=== PATIENT | female | born 1995 | race Caucasian/White ===

== ENCOUNTER 2017-03-26 23:50 | Inpatient (IN) | payer BC, MEDICAID ==
[2017-03-27] MEDS ORDERED: Misoprostol 400 MCG (4 X 100 MCG TAB) RECTAL PRN
[2017-03-27] MEDS ORDERED: Carboprost Tromethamine 250 MCG/1 ML Amp IM PRN
[2017-03-27] MEDS ORDERED: Nalbuphine 10 MG/1 ML Vial IVPUSH PRN
[2017-03-27] MEDS ORDERED: Methylergonovine 0.2 MG/1 ML Amp IM PRN
[2017-03-27] MEDS ORDERED: Acetaminophen 325 MG Tab PO PRN
[2017-03-27] MEDS ORDERED: Lactated Ringers 500 ML IV ONE
[2017-03-27] MEDS ORDERED: Lidocaine 1% 30 ML SDV INJECT PRN
[2017-03-27] MEDS ORDERED: Ondansetron 4 MG/2 ML SDV IV PRN
--- NOTE | 2017-03-27 | PCM.LDHP ---
L&D History of Present Illness - General Date of Service: 03/27/17 Admit Problem/Dx: Admission Diagnosis/Problem Admission Diagnosis/Problem Source of Information: Patient History Limitations: Reports: No Limitations - History of Present Illness Introduction:: 21-year-old presents to labor and delivery at 38 weeks gestation for induction of labor for IUGR. On her ultrasound yesterday, EFW was 2548 grams and EDC% was 5.3. The decision was made to proceed with induction of labor. Patient has been feeling well. Baby has been active. She does have random contractions but nothing regular. No vaginal bleeding or leaking of fluid. No new headache or vision changes. - Related Data Allergies/Adverse Reactions: Allergies Allergy/AdvReac Type Severity Reaction Status Date / Time Penicillins Allergy Hives Verified 03/27/17 01:19 Sulfa (Sulfonamide Allergy Hives Verified 03/27/17 01:19 Antibiotics) Home Medications: Home Meds PNV95/Ferrous Fumarate/FA [ Tablet] 1 each PO DAILY 03/24/14 [History] Ferrous Sulfate [Iron] 1 tab PO DAILY 03/19/17 [History] Past Medical History Psychiatric History: Reports: Anxiety - Infectious Disease History Infectious Disease History: Reports: MRSA - Past Surgical History HEENT Surgical History: Reports: Tonsillectomy Social & Family History - Family History GI: Reports: Other (See Below) (Esophageal cancer--Maternal grandfather) : Reports: Renal Calculus (Mother) - Tobacco Use Smoking Status *Q: Former Smoker Second Hand Smoke Exposure: Yes - Recreational Drug Use Recreational Drug Use: No H&P Review of Systems - Review of Systems: Review Of Systems: See Below General: Reports: No Symptoms HEENT: Reports: No Symptoms Pulmonary: Reports: No Symptoms Cardiovascular: Reports: No Symptoms Gastrointestinal: Reports: No Symptoms Genitourinary: Reports: No Symptoms Musculoskeletal: Reports: No Symptoms Skin: Reports: No Symptoms Psychiatric: Reports: No Symptoms Neurological: Reports: No Symptoms L&D Exam - Exam Exam: See Below - Vital Signs Weight: 66.678 kg - OB Specific Fundal Height In cm: 33 Heart Tones: Present Heart Tones per Min: 135 Heart Rate (FHR) Variability: Moderate (6-25 bmp) Presentation: Vertex - Zuluaga Score Zuluaga Score Cervix Position: Midposition Zuluaga Score Consistency: Medium Zuluaga Score Effacement: 51-70% Zuluaga Score Dilation: 1-2 cm Zuluaga Score Infant's Station: -1 ,0 Zuluaga Score Total: 7 - Exam General: Alert, Oriented HEENT: Conjunctiva Clear, Posterior Pharynx Clear Lungs: Clear to Auscultation, Normal Respiratory Effort Cardiovascular: Regular Rate, Regular Rhythm. No: Systolic Murmur, Diastolic Murmur GI/Abdominal Exam: Normal Bowel Sounds, Soft Extremities: Normal Inspection, No Pedal Edema Skin: Warm, Dry, Intact - Patient Data Result Diagrams: 03/27/17 00:12 - Problem List (1) care in third trimester SNOMED Code(s): 778370868, 68431062, 95178073, 933968420, 274570220 ICD Code: Z34.93 - ENCNTR FOR SUPRVSN OF NORMAL PREG, UNSP, THIRD TRIMESTER Status: Acute Current Visit: Yes (2) IUGR (intrauterine growth restriction) SNOMED Code(s): 73736975 ICD Code: PFV0429 - Status: Acute Current Visit: Yes (3) Anemia affecting in third trimester SNOMED Code(s): 76208254, 13979742 ICD Code: O99.013 - ANEMIA COMPLICATING , THIRD TRIMESTER Status: Acute Current Visit: Yes (4) complicated by maternal drug use, antepartum SNOMED Code(s): 857909191 ICD Code: O99.320 - DRUG USE COMPLICATING , UNSPECIFIED TRIMESTER Status: Acute Current Visit: Yes Problem List Initiated/Reviewed/Updated: Yes Assessment/Plan Comment:: 21-year-old at 38 weeks gestation was admitted for induction of labor for IUGR 1. Admit to labor and delivery 2. Initiate routine intrapartum cares 3. Place Cytotec. Plan for Pitocin and/or AROM for augmentation of labor. 4. Anticipate vaginal delivery. Linsey Adrian MD ADDENDUM: Patient received her first dose of Cytotec around 1 AM. She was mariam around the time when her second dose was due. She decided to sit in the tub. Patient was evaluated by me around 0800. At that time her cervix was 3/80/-1. The head was well applied so AROM was performed for moderate clear fluid. We'll monitor the patient for 1-2 hours. If contractions do not increased, we will proceed with Pitocin augmentation of labor. Linsey Adrian MD
[2017-03-27] MEDS ORDERED: Sodium Chloride 0.9% 10 ML Syringe FLUSH PRN ×3 (00:06→18:18)
[2017-03-27] MEDS ORDERED: Misoprostol 25 MCG (1/4 of 100 MCG) Tab VAG PRN (00:06)
[2017-03-27] MEDS ORDERED: Oxytocin/Normal Saline 30 UNIT/500 ML BAG IV SCH (00:15)
[2017-03-27] MEDS: fentaNYL 100 MCG/2 ML SDV IVPUSH PRN ×2 (11:20→13:12)
[2017-03-27] MEDS ORDERED: fentaNYL 100 MCG/2 ML SDV ITHECAL ONE (12:44)
[2017-03-27] MEDS: Lactated Ringers 1,000 ML IV SCH ×3 (14:19→16:13)
[2017-03-27] MEDS ORDERED: fentaNYL 100 MCG/2 ML SDV ONE (14:24)
--- NOTE | 2017-03-27 14:58 | PCM.SN ---
- Free Text/Narrative Note: Called to provide labor pain relief via intrathecal for this patient. After VS , labs, hx reviewed, consent obtained and monitors on, proceeded. With patient in sitting position, sterile prep/drape. Skin wheal at L3-4 with 1% Lidocaine. LP X 1 at L3-4 with 24gauge pencan spinal needle. Positive, free flowing clear CSF, no heme, no paresthesia. Then 6mg mpf hyperbaric spinal 0.75% marcaine, 20mcg sufenta, 30mcg fentanyl, 0.4ml preservative free saline plus epi wash intrathecal. Patient to supine for 10minutes afterwards. Maternal B/P and FHT stable after this. Pt reported pain relief with subsequent contractions.
[2017-03-27] MEDS ORDERED: Simethicone 80 MG Tab.Chew PO PRN (18:18)
[2017-03-27] MEDS ORDERED: Oxytocin 10 Units/1 ML SDV IM PRN (18:18)
[2017-03-27] MEDS ORDERED: Benzocaine/Menthol 20%-0.5% Spray 56 GM Canister TOP PRN (18:18)
--- NOTE | 2017-03-27 18:25 | PCM.DEL ---
L & D Note - General Info Date of Service: 03/27/17 Mother's Due Date: 04/10/17 - Delivery Note Labor: Augmented by Oxytocin, Induced by ARM Cervical Ripening Method: Misoprostil Delivery Outcome: Livebirth Infant Delivery Method: Spontaneous Vaginal Delivery Presentation: Right Occiput Anterior (NANI) Nuchal Cord: None Anesthesia Type: Intrathecal Amniotic Fluid Description: Clear Episiotomy Type: None Laceration: None Placenta: Intact, Spontaneous Cord: 3 Vessels (Cord noted to be about 8 in long) Estimated Blood Loss: 175 Resuscitation Needed: Yes : Bulb Syringe, Stimulated, Warmed Provider: Linsey Adrian Delivery Comments (Free Text/Narrative):: 21-year-old now status post normal spontaneous vaginal delivery. Patient presented for induction of labor at 38w0d due to IUGR. She received 1 dose of Cytotec. Around 8 AM, AROM was performed for moderate clear fluid. Pitocin was started around 12:30. Patient received an intrathecal for pain relief. She progressed to complete dilation around 1700. Patient labored down for approximately 30 minutes then started pushing. After about 20 minutes of pushing , she delivered a viable female . Cord was cut and clamped 2. Umbilical cord was noted to be quite short. Cord blood was collected. Baby was taken to the warmer for a couple of minutes and then was returned to mother's chest. About 2 minutes later, the placenta delivered spontaneously and appeared to be intact. Again, the umbilical cord was noted to be short at about 8 inches in length. Uterus is noted to be firm and bleeding was appropriate. Perineum was noted to be intact. There were no immediate complications, and patient tolerated procedure well. Linsey Adrian MD Induction Criteria - Zuluaga Score Zuluaga Score Dilation: 1-2 cm Zuluaga Score Effacement: 60-70% Zuluaga Score Infant's Station: -1 ,0 Zuluaga Score Consistency: Soft Zuluaga Score Cervix Position: Midposition Zuluaga Score Total: 8 Zuluaga Score Presenting Part: Reports: Cephalic - Induction Gestational Age >/= 39 wks: No Medical Indication: IUGR, EDC% 5.3 Estimated Pelvis: Reports: Adequate Reassuring Monitoring Strip: Yes Absence of Tachy Systole: Yes - Augmentation Estimated Pelvis: Reports: Adequate Weight Estimated:: Reports: SGA Estimated Weight if LGA: 2.548 kg Reassuring Monitoring Strip: Yes Absence of Tachy Systole: Yes - Patient Data Vitals - Most Recent: Last Vital Signs Temp 36.8 C 03/27/17 10:53 Pulse 86 03/27/17 15:45 Resp 16 03/27/17 07:42 BP 107/51 L 03/27/17 15:45 Pulse Ox 100 03/27/17 15:35 Weight - Most Recent: 66.678 kg I&O - Last 24 Hours: Intake & Output 03/27/17 03/27/17 03/27/17 06:59 14:59 22:59 Output Total 200 Balance -200 Lab Results Last 24 Hours: Laboratory Results - last 24 hr 03/27/17 03/27/17 Range/Units 00:12 01:30 WBC 11.6 H (5.0-10.0) 10^3/uL RBC 3.68 L (4.2-5.4) 10^6/uL Hgb 10.9 L (12.0-16.0) g/dL Hct 32.9 L (37.0-47.0) % MCV 89.4 (80-100) fL MCH 29.6 (27.0-34.0) pg MCHC 33.1 (33.0-35.0) g/dL Plt Count 186 (150-450) 10^3/uL Urine Opiates Screen Negative (NEGATIVE) Ur Oxycodone Screen Negative (NEGATIVE) Urine Methadone Screen Negative (NEGATIVE) Ur Barbiturates Screen Negative (NEGATIVE) U Tricyclic Antidepress Negative (NEGATIVE) Ur Phencyclidine Scrn Negative (NEGATIVE) Ur Amphetamine Screen Negative (NEGATIVE) U Methamphetamines Scrn Negative (NEGATIVE) Urine MDMA Screen Negative (NEGATIVE) U Benzodiazepines Scrn Negative (NEGATIVE) Urine Cocaine Screen Negative (NEGATIVE) U Marijuana (THC) Screen Positive H (NEGATIVE) Med Orders - Current: Current Medications Acetaminophen (Tylenol) 650 mg PO Q4H PRN PRN Reason: Pain (Mild 1-3) and fever Carboprost Tromethamine (Hemabate Ds) 250 mcg IM ASDIRECTED PRN PRN Reason: HEMORRHAGE Oxytocin/Sodium Chloride (Pitocin In Ns 30 Unit/500 Ml) 30 unit in 500 mls @ 2 mls/hr IV TITRATE ANICETO; 2 MUNITS/MIN PRN Reason: Protocol Last Titration: 03/27/17 15:18 Dose: 6 munits/min, 6 mls/hr Methylergonovine Maleate (Methergine) 0.2 mg IM ASDIRECTED PRN PRN Reason: Hemorrhage Misoprostol (Cytotec) 25 mcg VAG Q4H PRN PRN Reason: cervical ripening Stop: 03/28/17 04:07 Last Admin: 03/27/17 00:34 Dose: 25 mcg Sodium Chloride (Saline Flush) 10 ml FLUSH ASDIRECTED PRN PRN Reason: Keep Vein Open Sodium Chloride (Saline Flush) 10 ml FLUSH ASDIRECTED PRN PRN Reason: Keep Vein Open Discontinued Medications Fentanyl (Sublimaze) 50 mcg IVPUSH Q1H PRN PRN Reason: Pain (moderate 4-6) Last Admin: 03/27/17 13:12 Dose: 50 mcg Fentanyl (Sublimaze) Confirm Administered Dose 100 mcg .ROUTE .STK-MED ONE Stop: 03/27/17 14:25 Last Admin: 03/27/17 15:21 Dose: Not Given Lactated Ringer's (Ringers, Lactated) 500 mls @ 999 mls/hr IV .BOLUS ONE Stop: 03/27/17 00:30 Last Admin: 03/27/17 11:22 Dose: 999 mls/hr Lactated Ringer's (Ringers, Lactated) 1,000 mls @ 125 mls/hr IV ASDIRECTED ANICETO Last Admin: 03/27/17 16:13 Dose: 125 mls/hr Lidocaine HCl (Xylocaine-Mpf 1%) 10 ml INJECT ASDIRECTED PRN PRN Reason: Perineal Repair Misoprostol (Cytotec) 800 mcg RECTAL ASDIRECTED PRN PRN Reason: Hemorrhage Nalbuphine HCl (Nubain) 10 mg IVPUSH Q3H PRN PRN Reason: Pain (moderate 4-6) Ondansetron HCl (Zofran) 4 mg IV Q4H PRN PRN Reason: Nausea/Vomiting Last Admin: 03/27/17 14:12 Dose: 4 mg Sufentanil Citrate (Sufenta) Confirm Administered Dose 50 mcg .ROUTE .STK-MED ONE Stop: 03/27/17 14:26 Last Admin: 03/27/17 15:22 Dose: Not Given - Problem List & Annotations (1) care in third trimester SNOMED Code(s): 046855558, 72695265, 68462104, 884408715, 219053406 Code(s): Z34.93 - ENCNTR FOR SUPRVSN OF NORMAL PREG, UNSP, THIRD TRIMESTER Status: Acute Current Visit: Yes (2) IUGR (intrauterine growth restriction) SNOMED Code(s): 15602581 Code(s): RMI2890 - Status: Acute Current Visit: Yes (3) Anemia affecting in third trimester SNOMED Code(s): 91662036, 22799733 Code(s): O99.013 - ANEMIA COMPLICATING , THIRD TRIMESTER Status: Acute Current Visit: Yes (4) complicated by maternal drug use, antepartum SNOMED Code(s): 175142501 Code(s): O99.320 - DRUG USE COMPLICATING , UNSPECIFIED TRIMESTER Status: Acute Current Visit: Yes (5) (normal spontaneous vaginal delivery) SNOMED Code(s): 53350421 Code(s): O80 - ENCOUNTER FOR FULL-TERM UNCOMPLICATED DELIVERY Status: Acute Current Visit: Yes - Problem List Review Problem List Initiated/Reviewed/Updated: Yes - My Orders Last 24 Hours: My Active Orders 03/27/17 00:00 Pump Management, Intrathecal [RC] ASDIRECTED Acetaminophen [Tylenol] 650 mg PO Q4H PRN Carboprost Tromethamine [Hemabate DS] 250 mcg IM ASDIRECTED PRN Methylergonovine [Methergine] 0.2 mg IM ASDIRECTED PRN Sodium Chloride 0.9% [Saline Flush] 10 ml FLUSH ASDIRECTED PRN Resuscitation Status Routine 03/27/17 00:01 Patient Status [ADT] Routine Notify Provider Vital Signs OB [RC] ASDIRECTED Saline Lock Insert [OM.PC] Routine 03/27/17 00:06 Misoprostol [Cytotec] 25 mcg VAG Q4H PRN Sodium Chloride 0.9% [Saline Flush] 10 ml FLUSH ASDIRECTED PRN 03/27/17 00:07 Communication Order [RC] ASDIRECTED Communication Order [RC] ASDIRECTED Notify Provider [RC] PRN Notify Provider [RC] PRN Notify Provider [RC] STAT Vaginal Exam [RC] PRN Peripheral IV Insertion Adult [OM.PC] Urgent 03/27/17 00:08 Peripheral IV Care [RC] . DIRECTED 03/27/17 00:15 Oxytocin/Normal Saline [Pitocin in NS 30 UNIT/500 ML] 30 unit in 500 ml IV TITRATE 03/27/17 18:18 Up ad Negin [RC] ASDIRECTED Vital Signs [RC] PFP Consult to Associate Professor Of Communication [CONS] Routine Benzocaine/Menthol [Dermoplast Pain Relief [place]] See Dose Instructions TOP Q4H PRN Docusate Sodium [Colace] 100 mg PO BID PRN Ibuprofen [Motrin] 800 mg PO Q8H PRN Oxytocin [Pitocin] 10 unit IM ONETIME PRN Simethicone 80 mg PO Q4H PRN Sodium Chloride 0.9% [Saline Flush] 10 ml FLUSH ASDIRECTED PRN Assess Lochia [WOMSER] Per Unit Routine Assess Uterine Involution [WOMSER] Per Unit Routine Breast Pump [WOMSER] Per Unit Routine Ice Therapy [OM.PC] Per Unit Routine Perineal Care [OM.PC] Per Unit Routine Saline Lock Insert [OM.PC] Urgent Sitz Bath [OM.PC] Per Unit Routine 03/27/17 Dinner Regular Diet [DIET] 03/28/17 09:00 Vit with Ca/FA/Iron [ Plus Iron] 1 each PO DAILY - Assessment Assessment:: 21-year-old now status post normal spontaneous vaginal delivery - Plan Plan:: 1. Initiate routine cares. 2. Mother plans to breast-feed. 3. Anticipate discharge 03/29/2017 Linsey Adrian MD
[2017-03-27] MEDS: Docusate Sodium 100 MG Cap PO PRN (21:42)
[2017-03-27] MEDS: Ibuprofen 800 MG Tab PO PRN (21:42)
[2017-03-28] MEDS: Ibuprofen 800 MG Tab PO PRN ×2 (09:10→22:15)
[2017-03-28] MEDS: Docusate Sodium 100 MG Cap PO PRN ×2 (09:10→22:15)
[2017-03-28] MEDS: Prenatal Multivitamin with Calcium/Folic Acid/Iron Tab PO SCH (09:10)
--- NOTE | 2017-03-28 09:19 | PCM.PNPP ---
- General Info Date of Service: 03/28/17 Subjective Update: 21-year-old day #1 status post normal spontaneous vaginal delivery at 38w0d. Patient is doing well. She states her vaginal bleeding has decreased significantly. She is tolerating a general diet. She is ambulating without difficulty. She is urinating well with minimal discomfort. She has been passing gas but has not yet had a bowel movement. She is breast-feeding fairly well and is using a nipple shield currently. No concerns per patient or per nursing Functional Status: Reports: Pain Controlled, Tolerating Diet, Ambulating, Urinating. Denies: New Symptoms - Review of Systems General: Reports: No Symptoms HEENT: Reports: No Symptoms Pulmonary: Reports: No Symptoms Cardiovascular: Reports: No Symptoms Gastrointestinal: Reports: No Symptoms Genitourinary: Reports: No Symptoms Musculoskeletal: Reports: No Symptoms - General Info Date of Service: 03/28/17 - Patient Data Vital Signs - Most Recent: Last Vital Signs Temp 36.2 C 03/27/17 21:13 Pulse 87 03/27/17 20:15 Resp 16 03/27/17 20:15 BP 128/58 L 03/27/17 20:15 Pulse Ox 100 03/27/17 15:35 Weight - Most Recent: 66.678 kg I&O - Last 24 Hours: Intake & Output 03/27/17 03/28/17 03/28/17 22:59 06:59 14:59 Intake Total 1500 Output Total 800 Balance 1500 -800 Med Orders - Current: Current Medications Acetaminophen (Tylenol) 650 mg PO Q4H PRN PRN Reason: Pain (Mild 1-3) and fever Benzocaine/Menthol (Dermoplast Pain Relief [place]) 0 gm TOP Q4H PRN PRN Reason: Perineal comfort measures Carboprost Tromethamine (Hemabate Ds) 250 mcg IM ASDIRECTED PRN PRN Reason: HEMORRHAGE Docusate Sodium (Colace) 100 mg PO BID PRN PRN Reason: Constipation Last Admin: 03/28/17 09:10 Dose: 100 mg Oxytocin/Sodium Chloride (Pitocin In Ns 30 Unit/500 Ml) 30 unit in 500 mls @ 2 mls/hr IV TITRATE ANICETO; 2 MUNITS/MIN PRN Reason: Protocol Last Titration: 03/27/17 20:15 Dose: 0 munits/min, 0 mls/hr Ibuprofen (Motrin) 800 mg PO Q8H PRN PRN Reason: Mild Pain or Fever Last Admin: 03/28/17 09:10 Dose: 800 mg Methylergonovine Maleate (Methergine) 0.2 mg IM ASDIRECTED PRN PRN Reason: Hemorrhage Oxytocin (Pitocin) 10 unit IM ONETIME PRN PRN Reason: Bleeding Prenat Multivit/Insurance Rater/Iron/Folic Ac ( Plus Iron) 1 each PO DAILY [facility] Last Admin: 03/28/17 09:10 Dose: 1 each Simethicone (Simethicone) 80 mg PO Q4H PRN PRN Reason: Gas Sodium Chloride (Saline Flush) 10 ml FLUSH ASDIRECTED PRN PRN Reason: Keep Vein Open Sodium Chloride (Saline Flush) 10 ml FLUSH ASDIRECTED PRN PRN Reason: Keep Vein Open Sodium Chloride (Saline Flush) 10 ml FLUSH ASDIRECTED PRN PRN Reason: Keep Vein Open Discontinued Medications Fentanyl (Sublimaze) 50 mcg IVPUSH Q1H PRN PRN Reason: Pain (moderate 4-6) Last Admin: 03/27/17 13:12 Dose: 50 mcg Fentanyl (Sublimaze) Confirm Administered Dose 100 mcg .ROUTE .STK-MED ONE Stop: 03/27/17 14:25 Last Admin: 03/27/17 15:21 Dose: Not Given Lactated Ringer's (Ringers, Lactated) 500 mls @ 999 mls/hr IV .BOLUS ONE Stop: 03/27/17 00:30 Last Admin: 03/27/17 11:22 Dose: 999 mls/hr Lactated Ringer's (Ringers, Lactated) 1,000 mls @ 125 mls/hr IV ASDIRECTED [facility] Last Admin: 03/27/17 16:13 Dose: 125 mls/hr Lidocaine HCl (Xylocaine-Mpf 1%) 10 ml INJECT ASDIRECTED PRN PRN Reason: Perineal Repair Misoprostol (Cytotec) 800 mcg RECTAL ASDIRECTED PRN PRN Reason: Hemorrhage Misoprostol (Cytotec) 25 mcg VAG Q4H PRN PRN Reason: cervical ripening Stop: 03/28/17 04:07 Last Admin: 03/27/17 00:34 Dose: 25 mcg Nalbuphine HCl (Nubain) 10 mg IVPUSH Q3H PRN PRN Reason: Pain (moderate 4-6) Ondansetron HCl (Zofran) 4 mg IV Q4H PRN PRN Reason: Nausea/Vomiting Last Admin: 03/27/17 14:12 Dose: 4 mg Sufentanil Citrate (Sufenta) Confirm Administered Dose 50 mcg .ROUTE .STK-MED ONE Stop: 03/27/17 14:26 Last Admin: 03/27/17 15:22 Dose: Not Given - Infant Interaction Disposition, : to Nursery Feeding: Breastfed Infant; Nursed Well Support Person: Mother, Significant Other - Recovery Exam Fundal Tone: Firm Fundal Level: At Umbilicus Fundal Placement: Midline Lochia Amount: Small Lochia Color: Rubra/Red Perineum Description: Intact, Minimal Bruising/Swelling Episiotomy/Laceration: None Bladder Status: Nonpalpable - Exam General: Alert, Oriented Lungs: Clear to Auscultation, Normal Respiratory Effort Cardiovascular: Regular Rate, Regular Rhythm, No Murmurs GI/Abdominal Exam: Soft, Non-Tender Extremities: Normal Inspection, No Pedal Edema Skin: Warm, Dry, Intact - Problem List & Annotations (1) care in third trimester SNOMED Code(s): 911442331, 38349737, 19818795, 771405000, 242896369 Code(s): Z34.93 - ENCNTR FOR SUPRVSN OF NORMAL PREG, UNSP, THIRD TRIMESTER Status: Acute Current Visit: Yes (2) IUGR (intrauterine growth restriction) SNOMED Code(s): 29125035 Code(s): ERN8551 - Status: Acute Current Visit: Yes (3) Anemia affecting in third trimester SNOMED Code(s): 24057840, 14899980 Code(s): O99.013 - ANEMIA COMPLICATING , THIRD TRIMESTER Status: Acute Current Visit: Yes (4) complicated by maternal drug use, antepartum SNOMED Code(s): 143549346 Code(s): O99.320 - DRUG USE COMPLICATING , UNSPECIFIED TRIMESTER Status: Acute Current Visit: Yes (5) (normal spontaneous vaginal delivery) SNOMED Code(s): 71323444 Code(s): O80 - ENCOUNTER FOR FULL-TERM UNCOMPLICATED DELIVERY Status: Acute Current Visit: Yes - Problem List Review Problem List Initiated/Reviewed/Updated: Yes - My Orders Last 24 Hours: My Active Orders 03/27/17 18:18 Up ad Negin [RC] ASDIRECTED Vital Signs [RC] Consult to Button Sewing Machine Operator [CONS] Routine Benzocaine/Menthol [Dermoplast Pain Relief [place]] See Dose Instructions TOP Q4H PRN Docusate Sodium [Colace] 100 mg PO BID PRN Ibuprofen [Motrin] 800 mg PO Q8H PRN Oxytocin [Pitocin] 10 unit IM ONETIME PRN Simethicone 80 mg PO Q4H PRN Sodium Chloride 0.9% [Saline Flush] 10 ml FLUSH ASDIRECTED PRN Assess Lochia [WOMSER] Per Unit Routine Assess Uterine Involution [WOMSER] Per Unit Routine Breast Pump [WOMSER] Per Unit Routine Ice Therapy [OM.PC] Per Unit Routine Perineal Care [OM.PC] Per Unit Routine Saline Lock Insert [OM.PC] Urgent Sitz Bath [OM.PC] Per Unit Routine 03/27/17 Dinner Regular Diet [DIET] 03/28/17 09:00 Vit with Ca/FA/Iron [ Plus Iron] 1 each PO DAILY - Assessment Assessment:: 21-year-old now day #1 status post normal spontaneous vaginal delivery - Plan Plan:: 1. Continue routine cares. 2. Breast-feeding 3. Anticipate discharge 03/29/2017 Linsey Adrian MD
--- NOTE | 2017-03-28 14:35 | PCM.POSTAN ---
POST ANESTHESIA ASSESSMENT - MENTAL STATUS Mental Status: Alert - VITAL SIGNS Pulse Rate: 81 Resp Rate: 16 Blood Pressure: 121/69 Temperature: 36.9 C - RESPIRATORY Respiratory Status: Respiratory Rate WNL - CARDIOVASCULAR CV Status: Pulse Rate WNL - GASTROINTESTINAL GI Status: No Symptoms - POST OP HYDRATION Hydration Status: Adequate & Stable - OBSERVATIONS Free Text/Narrative:: pt without c/o. No PDPH, no PONV, no c/o pain or continued paresthesias, no post anesthesia complications noted.
--- NOTE | 2017-03-29 07:10 | PCM.DCSUM1 ---
Discharge Summary - Discharge Data Discharge Date: 03/29/17 Discharge Disposition: Home, Self-Care 01 Condition: Good - Discharge Diagnosis/Problem(s) (1) care in third trimester SNOMED Code(s): 598625045, [id number], [id number], [id number], [id number] ICD Code: Z34.93 - ENCNTR FOR SUPRVSN OF NORMAL PREG, UNSP, THIRD TRIMESTER Status: Acute Current Visit: Yes (2) IUGR (intrauterine growth restriction) SNOMED Code(s): 50280511 ICD Code: [id number] - Status: Acute Current Visit: Yes (3) Anemia affecting in third trimester SNOMED Code(s): 92365500, 99838792 ICD Code: O99.013 - ANEMIA COMPLICATING , THIRD TRIMESTER Status: Acute Current Visit: Yes (4) complicated by maternal drug use, antepartum SNOMED Code(s): 977036423 ICD Code: O99.320 - DRUG USE COMPLICATING , UNSPECIFIED TRIMESTER Status: Acute Current Visit: Yes (5) (normal spontaneous vaginal delivery) SNOMED Code(s): 74187136 ICD Code: O80 - ENCOUNTER FOR FULL-TERM UNCOMPLICATED DELIVERY Status: Acute Current Visit: Yes - Patient Summary/Data Operative Procedure(s) Performed: None Complications: None Consults: Consultations 03/27/17 18:18 Consult to Bench Hand [CONS] Routine Labs Pending at D/C: None Recommended Follow-up Testing/Procedures: None Planned Operative Procedure(s) after DC: None Hospital Course: Unremarkable (Please see Subjective Section) - Patient Instructions Diet: Usual Diet as Tolerated Activity: No Lifting Over 20 Pounds, Rest and Relax Today Driving: May Drive Today Showering/Bathing: May Shower in 3 Days Notify Provider of: Fever, Increased Pain, Swelling and Redness (breast), Nausea and/or Vomiting - Discharge Plan Home Medications: Home Meds PNV95/Ferrous Fumarate/FA [ Tablet] 1 each PO DAILY 03/24/14 [History] Ferrous Sulfate [Iron] 1 tab PO DAILY 03/19/17 [History] Patient Handouts: Home Care Instructions for Mom - Discharge Summary/Plan Comment DC Time >30 min.: No Discharge Summary/Plan Comment: Discharge home today. Follow-up in 6-8 weeks for visit. Reasons to return sooner were discussed with the patient, and she voiced her understanding. All questions were answered. Linsey Adrian MD - General Info Date of Service: 03/29/17 Subjective Update: 21-year-old day #2 status post normal spontaneous vaginal delivery at 38w0d. Patient is doing well. Vaginal bleeding is appropriate. She is tolerating a general diet. She is ambulating without difficulty. She is urinating well with minimal discomfort. She has been passing gas but has not yet had a bowel movement. She is breast-feeding well and is using a nipple shield currently. She did work with yesterday. No concerns per patient or per nursing Functional Status: Reports: Pain Controlled, Tolerating Diet, Ambulating, Urinating. Denies: New Symptoms - Review of Systems General: Reports: No Symptoms HEENT: Reports: No Symptoms Pulmonary: Reports: No Symptoms Cardiovascular: Reports: No Symptoms Gastrointestinal: Reports: No Symptoms Genitourinary: Reports: No Symptoms Musculoskeletal: Reports: No Symptoms Skin: Reports: No Symptoms Neurological: Reports: No Symptoms Psychiatric: Reports: No Symptoms - Patient Data Vitals - Most Recent: Last Vital Signs Temp 36.8 C 03/28/17 20:00 Pulse 107 H 03/28/17 20:00 Resp 18 03/28/17 20:00 BP 125/74 03/28/17 20:00 Pulse Ox 99 03/28/17 20:00 Weight - Most Recent: 66.678 kg Med Orders - Current: Current Medications Acetaminophen (Tylenol) 650 mg PO Q4H PRN PRN Reason: Pain (Mild 1-3) and fever Benzocaine/Menthol (Dermoplast Pain Relief [place]) 0 gm TOP Q4H PRN PRN Reason: Perineal comfort measures Carboprost Tromethamine (Hemabate Ds) 250 mcg IM ASDIRECTED PRN PRN Reason: HEMORRHAGE Docusate Sodium (Colace) 100 mg PO BID PRN PRN Reason: Constipation Last Admin: 03/28/17 22:15 Dose: 100 mg Oxytocin/Sodium Chloride (Pitocin In Ns 30 Unit/500 Ml) 30 unit in 500 mls @ 2 mls/hr IV TITRATE ANICETO; 2 MUNITS/MIN PRN Reason: Protocol Last Titration: 03/27/17 20:15 Dose: 0 munits/min, 0 mls/hr Ibuprofen (Motrin) 800 mg PO Q8H PRN PRN Reason: Mild Pain or Fever Last Admin: 03/28/17 22:15 Dose: 800 mg Methylergonovine Maleate (Methergine) 0.2 mg IM ASDIRECTED PRN PRN Reason: Hemorrhage Oxytocin (Pitocin) 10 unit IM ONETIME PRN PRN Reason: Bleeding Prenat Multivit/Teletype Mechanic/Iron/Folic Ac ( Plus Iron) 1 each PO DAILY [facility] Last Admin: 03/28/17 09:10 Dose: 1 each Simethicone (Simethicone) 80 mg PO Q4H PRN PRN Reason: Gas Sodium Chloride (Saline Flush) 10 ml FLUSH ASDIRECTED PRN PRN Reason: Keep Vein Open Sodium Chloride (Saline Flush) 10 ml FLUSH ASDIRECTED PRN PRN Reason: Keep Vein Open Sodium Chloride (Saline Flush) 10 ml FLUSH ASDIRECTED PRN PRN Reason: Keep Vein Open Discontinued Medications Fentanyl (Sublimaze) 50 mcg IVPUSH Q1H PRN PRN Reason: Pain (moderate 4-6) Last Admin: 03/27/17 13:12 Dose: 50 mcg Fentanyl (Sublimaze) Confirm Administered Dose 100 mcg .ROUTE .STK-MED ONE Stop: 03/27/17 14:25 Last Admin: 03/27/17 15:21 Dose: Not Given Lactated Ringer's (Ringers, Lactated) 500 mls @ 999 mls/hr IV .BOLUS ONE Stop: 03/27/17 00:30 Last Admin: 03/27/17 11:22 Dose: 999 mls/hr Lactated Ringer's (Ringers, Lactated) 1,000 mls @ 125 mls/hr IV ASDIRECTED ANICETO Last Admin: 03/27/17 16:13 Dose: 125 mls/hr Lidocaine HCl (Xylocaine-Mpf 1%) 10 ml INJECT ASDIRECTED PRN PRN Reason: Perineal Repair Misoprostol (Cytotec) 800 mcg RECTAL ASDIRECTED PRN PRN Reason: Hemorrhage Misoprostol (Cytotec) 25 mcg VAG Q4H PRN PRN Reason: cervical ripening Stop: 03/28/17 04:07 Last Admin: 03/27/17 00:34 Dose: 25 mcg Nalbuphine HCl (Nubain) 10 mg IVPUSH Q3H PRN PRN Reason: Pain (moderate 4-6) Ondansetron HCl (Zofran) 4 mg IV Q4H PRN PRN Reason: Nausea/Vomiting Last Admin: 03/27/17 14:12 Dose: 4 mg Sufentanil Citrate (Sufenta) Confirm Administered Dose 50 mcg .ROUTE .STK-MED ONE Stop: 03/27/17 14:26 Last Admin: 03/27/17 15:22 Dose: Not Given - Exam General: Reports: Alert, Oriented HEENT: Reports: Mucous Membr. Moist/Orange Lungs: Reports: Clear to Auscultation, Normal Respiratory Effort Cardiovascular: Reports: Regular Rate, Regular Rhythm, No Murmurs Extremities: No Pedal Edema Skin: Reports: Warm, Dry, Intact *Q Meaningful Use (DIS) - VTE *Q VTE Criteria *Q: - Stroke *Q Stroke Criteria *Q: - AMI *Q AMI Criteria *Q:
[2017-03-29 07:59] VITALS: BP 125/44
[2017-03-29] MEDS: Prenatal Multivitamin with Calcium/Folic Acid/Iron Tab PO SCH (09:29)
[2017-03-29] MEDS: Docusate Sodium 100 MG Cap PO PRN (09:29)
[2017-03-29] MEDS: Ibuprofen 800 MG Tab PO PRN (09:29)
== END 2017-03-29 12:45 | disposition home or self-care (01) | DRG 560 ==
LOC: DL.OBCHECK 23:50 → DL.OB 03-27 00:01 → OBSVTOIN 03-27 17:46 → EEVIPCON 03-27 17:46
PROVIDERS: ADMIT Family Medicine; ATTEND Family Medicine
PROC: 10E0XZZ Delivery of Products of Conception, External Approach (ICD-10-PCS; principal; 2017-03-27)
PROC: 3E033VJ Introduction of Other Hormone into Peripheral Vein, Percutaneous Approach (ICD-10-PCS; 2017-03-27)
PROC: 10907ZC Drainage of Amniotic Fluid, Therapeutic from Products of Conception, Via Natural or Artificial Opening (ICD-10-PCS; 2017-03-27)
PROC: 00HU33Z Insertion of Infusion Device into Spinal Canal, Percutaneous Approach (ICD-10-PCS; 2017-03-27)
PROC: 3E0R3CZ (ICD-10-PCS; 2017-03-27)
DX: O99.02 Anemia complicating childbirth (principal); O99.324 Drug use complicating childbirth; D64.9 Anemia, unspecified; F12.10 Cannabis abuse, uncomplicated; Z3A.38 38 weeks gestation of pregnancy; Z37.0 Single live birth
CPT/HCPCS: 36415; 80305; 85027; A9270-GY; J2405; J2590; J3010; J7120

== ENCOUNTER 2022-08-17 21:44 | Inpatient (IN) | payer BC, MEDICAID ==
[2022-08-17] MEDS ORDERED: Naloxone 2 MG/2 ML Syringe IVPUSH PRN (22:23)
[2022-08-17] MEDS ORDERED: Sodium Chloride 0.9% 10 ML Syringe FLUSH PRN (22:23)
[2022-08-17] MEDS ORDERED: Ondansetron 4 MG/2 ML SDV IVPUSH PRN ×2 (22:23)
[2022-08-17] MEDS ORDERED: Acetaminophen 325 MG Tab PO PRN (22:23)
[2022-08-17] MEDS ORDERED: Misoprostol 400 MCG (4 X 100 MCG TAB) RECTAL PRN (22:23)
[2022-08-17] MEDS ORDERED: Lactated Ringers 1,000 ML IV ONE (22:23)
[2022-08-17] MEDS ORDERED: Carboprost Tromethamine 250 MCG/1 ML Amp IM PRN (22:23)
[2022-08-17] MEDS ORDERED: Methylergonovine 0.2 MG/1 ML Amp IM PRN (22:23)
[2022-08-17] MEDS ORDERED: Promethazine 25 MG/ML SDV IM PRN (22:23)
[2022-08-17] MEDS ORDERED: Lidocaine 1% 10 ML MDV INJECT PRN (22:23)
[2022-08-17] MEDS ORDERED: ePHEDrine 50 MG/ML SDV IVPUSH PRN (22:23)
[2022-08-17] MEDS ORDERED: Lactated Ringers 500 ML IV SCH ×2 (22:30)
[2022-08-17] MEDS ORDERED: Oxytocin/Normal Saline 30 UNIT/500 ML BAG IV SCH (22:30)
[2022-08-17] MEDS ORDERED: Lactated Ringers 1,000 ML IV SCH (22:30)
[2022-08-17] MEDS ORDERED: fentaNYL 100 MCG/2 ML SDV IVPUSH STA (22:47)
[2022-08-17 22:52] LABS: AMPHETAMINES,URINE NEGATIVE (NEGATIVE); BARBITURATES,URINE NEGATIVE (NEGATIVE); BENZODIAZEPINE,URINE NEGATIVE (NEGATIVE); MDMA (ECSTASY), URINE NEGATIVE (NEGATIVE); METHADONE,URINE NEGATIVE (NEGATIVE); METHAMPHETAMINES,URINE NEGATIVE (NEGATIVE); OPIATES,URINE NEGATIVE (NEGATIVE); OXYCODONE,URINE NEGATIVE (NEGATIVE); PHENCYCLIDINE,URINE NEGATIVE (NEGATIVE); TCA,URINE NEGATIVE (NEGATIVE)
[2022-08-17] MEDS ORDERED: fentaNYL 100 MCG/2 ML SDV IVPUSH ONE (23:42)
[2022-08-18] MEDS ORDERED: Benzocaine/Menthol 20%-0.5% Spray 78 GM Cannister TOP PRN (00:54)
[2022-08-18] MEDS ORDERED: Sodium Chloride 0.9% 10 ML Syringe FLUSH PRN (00:54)
[2022-08-18] MEDS ORDERED: Acetaminophen 325 MG Tab PO PRN (00:54)
[2022-08-18] MEDS ORDERED: Docusate Sodium 100 MG Cap PO PRN (00:54)
[2022-08-18] MEDS ORDERED: Oxytocin 10 Units/1 ML SDV IM PRN (00:54)
[2022-08-18] MEDS ORDERED: Misoprostol 400 MCG (4 X 100 MCG TAB) RECTAL PRN (00:54)
[2022-08-18] MEDS ORDERED: Simethicone 80 MG Tab.Chew PO PRN (00:54)
[2022-08-18] MEDS ORDERED: Carboprost Tromethamine 250 MCG/1 ML Amp IM PRN (00:54)
[2022-08-18] MEDS: Ibuprofen 800 MG Tab PO PRN ×3 (01:28→17:43)
[2022-08-18] MEDS ORDERED: Diphtheria,Pertussis(Acell),Tetanus Vaccine 0.5 ML Syringe IM ONE (09:00)
[2022-08-18] MEDS: Prenatal Multivitamin with Calcium/Folic Acid/Iron Tab PO SCH (09:31)
[2022-08-18] MEDS: Ferrous Sulfate 325 MG Tab PO SCH (09:32)
[2022-08-19] MEDS: Ibuprofen 800 MG Tab PO PRN ×2 (01:36→09:46)
[2022-08-19] MEDS: Ferrous Sulfate 325 MG Tab PO SCH (09:46)
[2022-08-19] MEDS: Prenatal Multivitamin with Calcium/Folic Acid/Iron Tab PO SCH (09:46)
[2022-08-19 09:52] VITALS: BP 124/61; PULSE 84
== END 2022-08-19 13:00 | disposition home or self-care (01) | DRG 560 ==
LOC: DL.OBCHECK 21:44 → DL.OB 22:05 → OBSVTOIN 08-18 00:36
PROVIDERS: ADMIT Family Medicine; ATTEND Family Medicine
PROC: 10E0XZZ Delivery of Products of Conception, External Approach (ICD-10-PCS; principal; 2022-08-18)
PROC: 10907ZC Drainage of Amniotic Fluid, Therapeutic from Products of Conception, Via Natural or Artificial Opening (ICD-10-PCS; 2022-08-18)
PROC: 3E0234Z Introduction of Serum, Toxoid and Vaccine into Muscle, Percutaneous Approach (ICD-10-PCS; 2022-08-18)
DX: O99.324 Drug use complicating childbirth (principal); F12.90 Cannabis use, unspecified, uncomplicated; Z37.0 Single live birth; Z3A.38 38 weeks gestation of pregnancy; O99.334 Smoking (tobacco) complicating childbirth; F17.200 Nicotine dependence, unspecified, uncomplicated; O70.0 First degree perineal laceration during delivery; Z20.822 Contact with and (suspected) exposure to COVID-19; Z23 Encounter for immunization
CPT/HCPCS: 36415; 59409; 80305-QW; 85025; 85027; 90471; 90715; A9270-GY; J2590; J3010; J7120; U0002